=== PATIENT | female | born 1965 | race American Indian/Alaskan Native ===

== ENCOUNTER 2018-04-14 09:56 | Emergency (ER) | payer MEDICAID ==
[2018-04-14 10:08] VITALS: BP 142/102
[2018-04-14] MEDS ORDERED: IBUPROFEN PO ONE (11:06)
--- NOTE | 2018-04-14 11:07 | Emergency Department Report ---
ED Back Pain/Injury HPI - General Chief Complaint: Back Pain/Injury Stated Complaint: BACK PAIN Time Seen by Provider: 04/14/18 11:02 Source: patient, EMS Limitations: Physical Limitation - History of Present Illness Initial Comments: 1102 RAPID SCREEN AMBULATORY TO ROOM LBP WITH PAIN P URINATION NO TRAUMA MD Complaint: other Similar Symptoms Previously: Yes Place: home Improves With: none Worsens With: none Associated Symptoms: difficulty urinating - Related Data Previous Rx's Medication Instructions Recorded Last Taken Type Sulfamethoxazole/Trimethoprim 1 each PO BID #8 tablet 04/14/18 Unknown Rx [Bactrim DS TAB] traMADol [Ultram] 50 mg PO Q6HR PRN #10 tablet 04/14/18 Unknown Rx Allergies Allergy/AdvReac Type Severity Reaction Status Date / Time No Known Allergies Allergy Unverified 04/14/18 10:04 ED Review of Systems ROS: Stated complaint: BACK PAIN Other details as noted in HPI Comment: All other systems reviewed and negative Constitutional: denies: chills, fever Eyes: denies: eye pain ENT: denies: ear pain Respiratory: denies: orthopnea Cardiovascular: denies: palpitations Gastrointestinal: denies: abdominal pain, nausea, vomiting, diarrhea, constipation, hematemesis, melena Genitourinary: as per HPI, dysuria. denies: urgency, hematuria Musculoskeletal: as per HPI, back pain Skin: as per HPI. denies: lesions Neurological: denies: headache Psychiatric: denies: anxiety Hematological/Lymphatic: denies: as per HPI, easy bleeding ED Past Medical Hx - Past Medical History Hx Hypertension: Yes Additional medical history: PTSD, OA. PCP IS [facility] - Social History Smoking Status: Current Every Day Smoker Substance Use Type: None - Medications Home Medications: Home Medications Medication Instructions Recorded Confirmed Last Taken Type Sulfamethoxazole/Trimethoprim 1 each PO BID #8 tablet 04/14/18 Unknown Rx [Bactrim DS TAB] traMADol [Ultram] 50 mg PO Q6HR PRN #10 tablet 04/14/18 Unknown Rx ED Physical Exam - General Limitations: Physical Limitation General appearance: alert - Head Head exam: Present: atraumatic - Eye Eye exam: Present: normal appearance, PERRL Pupils: Present: normal accommodation - ENT ENT exam: Present: mucous membranes moist - Neck Neck exam: Present: normal inspection - Respiratory Respiratory exam: Present: normal lung sounds bilaterally - Cardiovascular Cardiovascular Exam: Present: regular rate - GI/Abdominal GI/Abdominal exam: Present: soft, normal bowel sounds. Absent: distended, tenderness, diminished bowel sounds - Rectal Rectal exam: Present: deferred - Extremities Exam Extremities exam: Present: normal inspection, full ROM - Back Exam Back exam: Present: normal inspection, full ROM. Absent: tenderness, CVA tenderness (R), CVA tenderness (L), muscle spasm, paraspinal tenderness, vertebral tenderness - Neurological Exam Neurological exam: Present: alert, oriented X3 - Psychiatric Psychiatric exam: Present: normal affect, normal mood - Skin Skin exam: Present: warm, dry ED Course Vital Signs 04/14/18 10:07 Temperature 98.5 F Pulse Rate 90 Respiratory 18 Rate Blood Pressure 142/102 [Right] O2 Sat by Pulse 97 Oximetry - Reevaluation(s) Reevaluation #1: 04/14/18 11:45 UA SENT BY PROVIDER PAIN MED ORDERED AT 1100 POINTED OUT TO RN Reevaluation #2: 04/14/18 11:57 pt upset and wants to go to [place] she states her problem started up front, she was allowed to verbalize concerns. then I she is having 10/10 pain and does not want Motrin ED Medical Decision Making - Lab Data Result diagrams: 04/14/18 12:50 04/14/18 12:50 - Medical Decision Making Labs 04/14/18 04/14/18 04/14/18 11:18 12:50 12:50 WBC 8.4 RBC 4.67 Hgb 14.4 H Hct 44.0 H MCV 94 MCH 31 MCHC 33 RDW 13.8 Plt Count 294 Sodium 140 Potassium 4.2 Chloride 106.3 Carbon Dioxide 22 Anion Gap 16 BUN 9 Creatinine 0.7 Estimated GFR > 60 BUN/Creatinine Ratio 13 Glucose 86 Calcium 8.6 Urine Color Yellow Urine Turbidity Slightly-cloudy Urine pH 6.0 Ur Specific [place] 1.013 Urine Protein <15 mg/dl Urine Glucose (UA) Neg Urine Ketones Neg Urine Blood Sm Urine Nitrite Neg Urine Bilirubin Neg Urine Urobilinogen 2.0 Ur Leukocyte Esterase Mod Urine WBC (Auto) 36.0 H Urine RBC (Auto) 9.0 U Epithel Cells (Auto) 18.0 H Urine Bacteria (Auto) 1+ Urine Mucus Few PT CO LBP DENIES TRAUMA HAS DYURIA WITH URINATION POST MENOPAUSAL NO FEVER NO CVA TENDERNESS NOT CONCERNED W STI LABS AND URINE NOTED NS/ROCEPHIN DC HOME W DC POC VSS - Differential Diagnosis RO UTI/PYLO Critical care attestation.: If time is entered above; I have spent that time in minutes in the direct care o f this critically ill patient, excluding procedure time. ED Disposition Clinical Impression: UTI (urinary tract infection) Disposition: DC-01 TO HOME OR SELFCARE Is pt being admited?: No Does the pt Need Aspirin: No Condition: Stable Instructions: Urinary Tract Infection in Women (ED) Additional Instructions: HYDRATE WELL WITH WATER FOLLOW UP AT [facility] MOTRIN OR TYLENOL FOR MILD PAIN ULTRAM FOR SEVERE PAIN ACTIVITY AND DIET TOLERATED Prescriptions: Sulfamethoxazole/Trimethoprim [Bactrim DS TAB] 1 each PO BID #8 tablet traMADol [Ultram] 50 mg PO Q6HR PRN #10 tablet PRN Reason: Pain Referrals: [facility] [Other] - 3-5 Days Time of Disposition: 13:06
[2018-04-14 11:39] LABS: Bacteria,Urine 1+ /HPF (Negative); Bilirubin,Urine NEG (Negative); Blood,Urine SM (Negative); Color,Urine Yellow (Yellow); Mucus,Urine FEW /HPF; Protein,Urine <15 mg/dL mg/dL (Negative)
[2018-04-14] MEDS ORDERED: NACL 0.9% 1000 ML 1,000 ML IV ONE (12:02)
[2018-04-14] MEDS ORDERED: NORCO 5/325 PO ONE (12:36)
[2018-04-14] MEDS ORDERED: ROCEPHIN/NS 1 GM/50 ML 1 GM/50 ML BAG IV ONE (12:36)
[2018-04-14 13:02] LABS: Hemoglobin 14.4 gm/dl (10.1-14.3); Mean Corpuscular HGB Conc 33 % (30-34); Mean Corpuscular Volume 94 fl (79-97); Platelet Count 294 K/mm3 (140-440); Red Blood Count 4.67 M/mm3 (3.65-5.03); Red Cell Distribution Width 13.8 % (13.2-15.2)
[2018-04-14 13:20] LABS: BUN/Creatinine Ratio 13; Blood Urea Nitrogen 9 mg/dL (7-17); Calcium 8.6 mg/dL (8.4-10.2); Hemolysis Index 13
== END 2018-04-14 13:51 | disposition home or self-care (01) ==
LOC: ED 09:56
DX: N39.0 Urinary tract infection, site not specified (principal); I10 Essential (primary) hypertension; F17.200 Nicotine dependence, unspecified, uncomplicated; F43.10 Post-traumatic stress disorder, unspecified
CPT/HCPCS: 36415; 80048; 81001; 85027; 99284; J0696; J7030